=== PATIENT | female | born 1990 | race Hispanic/Latino ===

== ENCOUNTER → 2020-05-07 | Outpatient (REF) | payer OTHER ==
[2020-05-07 16:57] LABS: URINE PREG TEST NEGATIVE (NEGATIVE)
[2020-05-07 16:59] LABS: APPEARANCE, URINE CLEAR (CLEAR); BACTERIA, URINE AUTO 1+ (NEGATIVE); BILIRUBIN, URINE AUTO NEGATIVE (NEGATIVE); BLOOD, URINE BLOOD 1+ (NEGATIVE); COLOR, URINE STRAW (YELLOW); GLUCOSE, URINE (UA) AUTO NEGATIVE (NEGATIVE); KETONE, URINE AUTO NEGATIVE (NEGATIVE); LEUKOCYTE ESTERASE, URINE AUTO 2+ (NEGATIVE); NITRITE, URINE AUTO NEGATIVE (NEGATIVE); PROTEIN, URINE AUTO NEGATIVE (NEGATIVE); RBC, URINE AUTO 1 /HPF (0-3); SPECIFIC GRAVITY URINE AUTO 1.004 (1.002-1.035); SQUAMOUS EPITHELIAL CELL UR AU 3 /HPF (0-6); UROBILINOGEN, URINE AUTO 0.2 mg/dL (0.0-2.0); WBC, URINE AUTO 37 /HPF (0-3)
== END ==
LOC: M LAB REF 16:22
PROVIDERS: ATTEND Physician Assistant
DX: N39.0 Urinary tract infection, site not specified (principal); Z32.00 Encounter for pregnancy test, result unknown

== ENCOUNTER → 2021-02-12 | Outpatient (CLI) | payer OTHER ==
[~2021-02-12] MED LIST: ISOVUE-370 76% 100ML VIAL As Ordered ONE
== END ==
LOC: M RADPRO 11:29
PROVIDERS: ATTEND Obstetrics & Gynecology
DX: N97.9 Female infertility, unspecified (principal)
CPT/HCPCS: 58340; 74740; Q9967

== ENCOUNTER 2021-07-14 23:42 | Emergency (ER) | payer OTHER ==
[~2021-07-14] VITALS: Ht 162.6 cm; Wt 68.6 kg
[2021-07-15 00:24] LABS: BASO % 0.4 % (0.0-1.0); EOS % 0.2 % (0.0-3.0); HEMATOCRIT 35.6 % (36.0-47.0); HEMOGLOBIN 11.6 g/dl (12.0-15.5); LYMPH # 1.6 10^3/uL (1.5-5.0); MEAN CORPUSCULAR HEMOGLOBIN 28.7 pg (27.0-33.0); MEAN CORPUSCULAR HGB CONC 32.6 g/dl (32.0-36.5); MEAN CORPUSCULAR VOLUME 88.1 fl (80.0-96.0); MONO # 0.7 10^3/uL (0.0-0.8); MONO % 8.5 % (2.0-8.0); NEUTROPHILS # 6.1 10^3/uL (1.5-8.5); NEUTROPHILS % 71.5 % (36.0-66.0); PLATELET COUNT, AUTOMATED 233 10^3/uL (150-450); RED BLOOD COUNT 4.04 10^6/uL (4.00-5.40); WHITE BLOOD COUNT 8.5 10^3/uL (4.0-10.0)
[2021-07-15 00:52] LABS: ALBUMIN 3.8 GM/DL (3.2-5.2); ALT/SGPT 23 U/L (12-78); BILIRUBIN,DIRECT 0.1 MG/DL (0.0-0.2); BILIRUBIN,TOTAL 0.3 MG/DL (0.2-1.0); BLOOD UREA NITROGEN 10 MG/DL (7-18); CALCIUM LEVEL 8.8 MG/DL (8.5-10.1); CARBON DIOXIDE LEVEL 27 MEQ/L (21-32); CHLORIDE LEVEL 104 MEQ/L (98-107); CREATININE FOR GFR 0.86 MG/DL (0.55-1.30); GLOMERULAR FILTRATION RATE > 60.0 (>60); GLUCOSE, FASTING 127 MG/DL (70-100); LIPASE 56 U/L (73-393); POTASSIUM SERUM 3.5 MEQ/L (3.5-5.1); SODIUM LEVEL 136 MEQ/L (136-145); TOTAL PROTEIN 7.3 GM/DL (6.4-8.2)
[2021-07-15 01:35] LABS: HCG, SERUM QUALITATIVE NEGATIVE (NEGATIVE)
[2021-07-15] MEDS ORDERED: CIPR-249 PO (02:19)
[2021-07-15] MEDS ORDERED: MIRA3350 PO (02:19)
[2021-07-15] MEDS ORDERED: KETOROLAC TROMETHAMINE 10 MG TAB PO ONE (02:25)
[2021-07-15] MEDS ORDERED: CIPROFLOXACIN 500MG TABLET PO ONE (02:25)
[2021-07-15 02:35] VITALS: BP 115/60
== END 2021-07-15 02:43 | disposition home or self-care (01) ==
LOC: M ED 23:42
DX: N39.0 Urinary tract infection, site not specified (principal); K59.00 Constipation, unspecified

== ENCOUNTER 2022-06-01 23:35 | Outpatient (CLI) | payer OTHER ==
[~2022-06-01] VITALS: Ht 162.6 cm; Wt 74.9 kg
[~2022-06-01 23:35] MED LIST changes: +CIPR-249 PO; -ISOVUE-370 76% 100ML VIAL As Ordered ONE; +MIRA3350 PO
[2022-06-01] MEDS ORDERED: VITA100T59 PO (23:53)
[2022-06-01] MEDS ORDERED: PRENTAB9 PO (23:53)
[2022-06-01] MEDS ORDERED: GNP45TAB2 PO (23:53)
[2022-06-01] MEDS ORDERED: HOME MED LIST COMPLETE! XX SCH (23:55)
[2022-06-01 23:56] VITALS: BP 118/69
[2022-06-02 01:13] VITALS: BP 117/74
== END 2022-06-02 02:12 | disposition home or self-care (01) ==
LOC: M LDO 23:35
PROVIDERS: ATTEND Obstetrics & Gynecology
DX: O47.1 False labor at or after 37 completed weeks of gestation (principal); Z3A.38 38 weeks gestation of pregnancy
CPT/HCPCS: 59025; G0378; G0463

== ENCOUNTER 2022-06-11 17:05 | Outpatient (CLI) | payer OTHER ==
[~2022-06-11] VITALS: Ht 162.6 cm; Wt 74.4 kg
[~2022-06-11 17:05] MED LIST changes: +GNP45TAB2 PO; +PRENTAB9 PO; +VITA100T59 PO
[2022-06-11 17:30] VITALS: BP 113/69
[2022-06-11] MEDS ORDERED: HOME MED LIST COMPLETE! XX SCH (18:05)
[2022-06-11 18:43] VITALS: BP 119/74
== END 2022-06-11 18:42 | disposition home or self-care (01) ==
LOC: M LDO 17:05
PROVIDERS: ATTEND Obstetrics & Gynecology
DX: O47.1 False labor at or after 37 completed weeks of gestation (principal); Z3A.38 38 weeks gestation of pregnancy; Z91.018 Allergy to other foods
CPT/HCPCS: 59025; G0463

== ENCOUNTER 2022-06-12 19:30 | Outpatient (CLI) | payer OTHER ==
[~2022-06-12] VITALS: Ht 162.6 cm; Wt 75.5 kg
[2022-06-12] MEDS ORDERED: HOME MED LIST COMPLETE! XX SCH (19:40)
[2022-06-12 19:44] VITALS: BP 122/75
== END 2022-06-12 20:14 | disposition home or self-care (01) ==
LOC: M LDO 19:30
PROVIDERS: ATTEND Obstetrics & Gynecology
DX: O47.1 False labor at or after 37 completed weeks of gestation (principal); Z3A.39 39 weeks gestation of pregnancy; Z91.018 Allergy to other foods
CPT/HCPCS: 59025; G0463

== ENCOUNTER 2022-06-13 06:28 | Inpatient (IN) | payer OTHER ==
[~2022-06-13] VITALS: Ht 162.6 cm; Wt 74.1 kg
[2022-06-13] VITALS (21 sets, daily range): BP systolic 102–149; BP diastolic 55–80
[2022-06-13 07:26] LABS: HEMATOCRIT 32.2 % (36.0-47.0); HEMOGLOBIN 10.8 g/dl (12.0-15.5); MEAN CORPUSCULAR HEMOGLOBIN 30.7 pg (27.0-33.0); MEAN CORPUSCULAR HGB CONC 33.5 g/dl (32.0-36.5); MEAN CORPUSCULAR VOLUME 91.5 fl (80.0-96.0); PLATELET COUNT, AUTOMATED 164 10^3/uL (150-450); RED BLOOD COUNT 3.52 10^6/uL (4.00-5.40); WHITE BLOOD COUNT 9.9 10^3/uL (4.0-10.0)
[2022-06-13] MEDS ORDERED: LACTATED RINGER'S 1000 ML IV STA (07:39)
[2022-06-13] MEDS ORDERED: METHYLERGONOVINE MALEATE 0.2 MG/ML VIAL (J2210) IM PRN (07:40)
[2022-06-13] MEDS ORDERED: TRANEXAMIC ACID INJection 1,000 MG in NS 100 ML IV PRN (07:40)
[2022-06-13] MEDS ORDERED: LIDOCAINE 1% MDV 20ML VIAL INFIL PRN (07:40)
[2022-06-13] MEDS ORDERED: CARBOPROST TROMETHAMINE 250 MCG/ML AMP IM PRN (07:40)
[2022-06-13] MEDS ORDERED: OXYTOCIN DRIP 30 UNITS in IV 1 EA IV PRN ×6 (07:40)
[2022-06-13] MEDS ORDERED: ePHEDrine SULFATE 25 MG/5 ML(5MG/ML) SYRINGE IVP PRN (08:25)
[2022-06-13] MEDS ORDERED: NALOXONE INJ 0.4MG/1ML VIAL IV PRN (08:25)
[2022-06-13] MEDS ORDERED: EPIDURAL/PCA KEYS XX PRN (08:25)
[2022-06-13] MEDS ORDERED: ONDANSETRON 4MG 2ML VIAL IV PRN (08:25)
[2022-06-13] MEDS ORDERED: diphenhydrAMINE 50MG/ML VIAL IV PRN (08:25)
[2022-06-13] MEDS ORDERED: FENTANYL/ROPIVACAINE/NACL BAG 100 ML EPIDURAL SCH (08:25)
[2022-06-13] MEDS ORDERED: LR 500 ML IV PRN (08:25)
[2022-06-13] MEDS: PRENATAL VITAMINS CHEWABLE TABLET PO SCH (09:00)
[2022-06-13] MEDS ORDERED: HOME MED LIST COMPLETE! XX SCH (10:25)
[2022-06-13] MEDS ORDERED: OXYTOCIN 30UNITS IN 0.9% NaCl 500ML IV BAG As Ordered ONE (11:43)
[2022-06-13] MEDS ORDERED: ACETAMINOPHEN TAB 650MG DOSE (2X325MG) PO PRN (12:30)
[2022-06-13] MEDS ORDERED: MOM 30ML SUSPENSION UDC PO PRN (12:30)
[2022-06-13] MEDS ORDERED: IBUPROFEN 600MG TAB PO PRN (12:30)
[2022-06-13] MEDS ORDERED: IBUPROFEN 800 MG TAB PO PRN (12:30)
[2022-06-13] MEDS ORDERED: DIBUCAINE 1% OINTMENT 30GM TOP PRN (12:30)
[2022-06-13] MEDS ORDERED: OXYTOCIN DRIP 30 UNITS in IV 1 EA IV SCH ×4 (12:30)
[2022-06-13] MEDS ORDERED: ACETAMINOPHEN 500 MG TAB PO PRN (12:30)
[2022-06-13] MEDS ORDERED: DOCUSATE SODIUM 100MG CAPSULE PO PRN (12:30)
[2022-06-13] MEDS ORDERED: RHOGAM 300MCG (1500IU) INJ IM SCH (12:30)
[2022-06-13] MEDS ORDERED: METHYLERGONOVINE MALEATE 0.2 MG TAB PO PRN (12:30)
[2022-06-14 06:00] VITALS: BP 114/58
[2022-06-14] MEDS: PRENATAL VITAMINS CHEWABLE TABLET PO SCH (09:00)
[2022-06-14] MEDS ORDERED: COLA100C5 PO (10:51)
[2022-06-14] MEDS ORDERED: IBUP-1022 PO (10:51)
[2022-06-14] MEDS ORDERED: ACET1TAB55 PO (10:51)
[2022-06-14] MEDS ORDERED: medroxyPROGESTERone ACET IM SUSP 150 MG/ML VIAL IM ONE (11:30)
[2022-06-15] MEDS ORDERED: MEASLES,MUMPS,RUBELLA VACCINE INJ (MMR-II) SC.IMMUN ONE (09:00)
== END 2022-06-14 17:45 | disposition home or self-care (01) | DRG 807 ==
LOC: M LDO 06:28 → M LDI 06:51 → M OBS 14:10
PROVIDERS: ADMIT Obstetrics & Gynecology; ATTEND Obstetrics & Gynecology
PROC: 10E0XZZ Delivery of Products of Conception, External Approach (ICD-10-PCS; principal; 2022-06-13)
DX: O69.1XX0 Labor and delivery complicated by cord around neck, with compression, not applicable or unspecified (principal); Z37.0 Single live birth; Z3A.39 39 weeks gestation of pregnancy